=== PATIENT | male | born 1960 | race Two or more races ===

== ENCOUNTER 2019-02-02 01:41 | Emergency (ER) | payer OTHER ==
[~2019-02-02] VITALS: Ht 182.9 cm; Wt 98.0 kg
--- NOTE | 2019-02-02 01:50 | NUR ---
PT AAOX4. BIBSELF C/O L WRIST PAIN S/P GLF X5HR MEAT SPECIALIST -LOC, +SKIN INTACT, +SWELLING. CAP REFIL <3,PAIN 10/10 WHEN FLEXING THE WRIST. ABLE TO GRASP HAND. RR EVEN AND UNLABORED. VSS. AWAITING MD FOR EVAL.
[2019-02-02] MEDS ORDERED: KETOROLAC TROMETHAMINE INJ 60 MG/2 ML VIAL IM ONE ×2 (02:18→02:30)
--- NOTE | 2019-02-02 02:51 | NUR ---
XRAY AT BEDSIDE
--- NOTE | 2019-02-02 02:55 | NUR ---
Patient is resting comfortably in bed. Easily aroused. VSS.
--- NOTE | 2019-02-02 03:44 | NUR ---
Pt refuses to wait for xray results. aware.
[2019-02-02 03:45] VITALS: BP 124/82
--- NOTE | 2019-02-02 03:45 | NUR ---
Patient discharged to home in stable condition. Written and verbal after care instructions given. Patient verbalizes understanding of instruction. PT ambulatory with a steady gait
== END 2019-02-02 03:48 | disposition home or self-care (01) ==
LOC: ER 01:42
DX: M25.532 Pain in left wrist (principal); M25.522 Pain in left elbow; F17.200 Nicotine dependence, unspecified, uncomplicated; Z88.1 Allergy status to other antibiotic agents; W01.0XXA Fall on same level from slipping, tripping and stumbling without subsequent striking against object, initial encounter; Y93.89 Activity, other specified; Y92.89 Other specified places as the place of occurrence of the external cause; Y99.8 Other external cause status
CPT/HCPCS: 29125; 73080; 73110; 96372; 99283; J1885